=== PATIENT | male | born 1985 | race Caucasian/White ===

== ENCOUNTER 2018-06-10 12:32 | Emergency (ER) | payer MEDICAID ==
[2018-06-10] MEDS ORDERED: IBUPROFEN 600 MG TABLET PO ONE (12:49)
--- NOTE | 2018-06-10 12:53 | Emergency Department Record ---
History of Present Illness - General Chief Complaint: Knee injury Stated Complaint: RT KNEE SWELLING/PAIN Time Seen by Provider: 06/10/18 12:39 Source: Patient Mode of Arrival: Wheelchair Limitations: No limitations - History of Present Illness Initial Comments: The patient is here due to R knee pain. He states he has a hx of chronic R knee injuries and has had multiple surgeries on the R knee. He was walking 3 days ago and the knee gave out and he landed on it and it has been painful and swollen since. The patient states he has been unable to walk on it since. Complaint: Knee injury Onset/Timin -: Days(s) - Related Data Home Medications Medication Instructions Recorded Confirmed Last Taken Albuterol Sulfate [Proair Hfa] 1 - 2 puff IH .EVERY 4-6 HOURS PRN 06/10/1806/10 Unknown Previous Rx's Medication Instructions Recorded Albuterol Sulfate [Proair Hfa] 2 puff IH QID PRN #1 inhaler 06/10/18 Naproxen [Naprosyn] 500 mg PO BID #14 tablet. 06/10/18 Allergies Allergy/AdvReac Type Severity Reaction Status Date / Time No Known Drug Allergies Allergy Verified 06/10/18 12:48 Review of Systems Constitutional: Denies: Chills, Fever Eyes: Denies: Eye discharge ENT: Denies: Congestion Respiratory: Denies: Cough, Dyspnea Cardiovascular: Denies: Chest pain Physical Exam - General General Appearance: Alert, Oriented x3, Cooperative, No acute distress - Head Head exam: Atraumatic, Normocephalic, Normal inspection - Eye Eye exam: Normal appearance, PERRL - ENT ENT exam: Normal exam - Neck Neck exam: Normal inspection, Full ROM. negative: Tenderness - Respiratory Respiratory exam: Normal lung sounds bilaterally. negative: Respiratory distress - Cardiovascular Cardiovascular Exam: Regular rate, Normal rhythm, Normal heart sounds - Extremities Extremities exam: Full ROM (There is full ROM with pain on full flexion.), Normal capillary refill, Tenderness (There is mild diffuse anterior R knee tenderness.), Other (There is no ligamentous laxity appreciated.). negative: Normal inspection (There is no bruising or erythema to the R knee. There may be a very slight joint effusion.), Calf tenderness, Joint swelling, Pedal edema Course Vital Signs 06/10/18 12:43 Temperature 97.9 F Pulse Rate [ 107 H Left] Respiratory 16 Rate Blood Pressure 140/92 [Left Arm] Pulse Ox 97 - Reevaluation(s) Reevaluation #1: I explained to the patient the need to wear his home knee brace and use the crutches for non-lani bearing. He is to take the naprosyn and see a PCP this week for further evaluation and to possibly order an MRI. 06/10/18 13:58 Medical Decision Making - Data Complexity MDM Data: X-Ray Ordered and/or Reviewed - Radiology Data Radiology results: Report reviewed (R knee: previous ACL repair with arthritis. Very small joint effusion. Neg for acute changes.) Disposition Disposition: Discharge Clinical Impression: Knee pain, right Qualifiers: Chronicity: acute Qualified Code(s): M25.561 - Pain in right knee Disposition: Home, Self-Care Condition: (2) Stable Instructions: Knee Pain (ED) Additional Instructions: Please wear your home knee brace and use crutches for walking. Please do not weight bear on the R leg for 3 days. Please see a family doctor this week for recheck and to schedule your R knee MRI. Use ice on the knee when possible. Prescriptions: Albuterol Sulfate [Proair Hfa] 2 puff IH QID PRN #1 inhaler PRN Reason: Cough And Difficulty Breathing Naproxen [Naprosyn] 500 mg PO BID #14 tablet.dr Forms: Patient Portal Access Time of Disposition: 13:49 Quality - Quality Measures Quality Measures: N/A - Blood Pressure Screening View Details: Yes Does Patient Have Any of the Following: No Blood Pressure Classification: Hypertensive Reading Systolic Measurement: 140 Diastolic Measurement: 92 Screening for High Blood Pressure: < First Hypertensive BP, F/U Documented > [ G8950] First Hypertensive Follow-up Interventions: Referral to alternative/primary care provider.
--- NOTE | 2018-06-12 07:54 | RADIOLOGY REPORT ---
EXAM: RIGHT KNEE HISTORY: THE PATIENT'S RIGHT KNEE GAVE OUT FOUR DAYS AGO AND THE PATIENT FELL. ANTERIOR AND LATERAL RIGHT KNEE PAIN. HISTORY OF MULTIPLE PREVIOUS KNEE SURGERIES. TECHNIQUE: Three views of the right knee were obtained. Comparison: None. FINDINGS: The patient is status post ACL repair. There are moderate tricompartmental arthritic changes with moderate sized marginal osteophytes. Ossified loose bodies are also present anteriorly and posteriorly. There is no visible acute fracture or dislocation. A small suprapatellar joint effusion is present. IMPRESSION: 1. MODERATE TRICOMPARTMENTAL ARTHRITIC CHANGES WITH ASSOCIATED OSSIFIED INTRAARTICULAR LOOSE BODIES ANTERIORLY AND POSTERIORLY. 2. SMALL JOINT EFFUSION. 3. NO ACUTE OSSEOUS ABNORMALITY. JOB NUMBER: [id number] [facility] [place]
== END 2018-06-10 14:07 | disposition home or self-care (01) ==
LOC: ER 12:32
DX: G89.11 Acute pain due to trauma (principal); M25.561 Pain in right knee
CPT/HCPCS: 99283

== ENCOUNTER 2018-07-17 08:09 | Emergency (ER) | payer MEDICAID ==
[2018-07-17] MEDS ORDERED: PREDNISONE 20 MG TAB PO ONE (08:29)
--- NOTE | 2018-07-17 08:47 | Emergency Department Record ---
History of Present Illness - General Chief Complaint: Cough Stated Complaint: COUGH Time Seen by Provider: 07/17/18 08:21 Source: Patient Mode of Arrival: Ambulatory Limitations: No limitations - History of Present Illness Initial Comments: The patient is here due to a 5 hour hx of cough and congestion. He does state he has had sputum production and mild SOB. The patient denies any Cp, fever, chills, ST or back pain. He does have a hx of mild asthma but has never needed to stay in the hospital for it. MD Complaint: Cough Onset/Timin -: Hour(s) Severity scale (1-10): 7 Consistency: Constant - Related Data Previous Rx's Medication Instructions Recorded Albuterol Sulfate [Proair Hfa] 2 puff IH QID PRN #1 inhaler 06/10/18 Allergies Allergy/AdvReac Type Severity Reaction Status Date / Time mushroom Allergy Severe Unverified 07/11/18 15:20 Seafood Allergy Severe Hives, Uncoded 06/13/18 17:34 difficulty breathing Travel Screening - Travel/Exposure Within Last 30 Days Have you traveled within the last 30 days?: No Review of Systems Constitutional: Denies: Chills, Fever Eyes: Denies: Eye discharge ENT: Reports: Congestion Respiratory: Reports: Cough. Denies: Dyspnea Past Medical History - SOCIAL HISTORY Smoking Status: Former smoker - RESPIRATORY Hx Respiratory Disorders: Yes Hx Asthma: Yes Hx COPD: Yes - CARDIOVASCULAR Hx Cardio Disorders: No - NEURO Hx Neuro Disorders: No - GI Hx GI Disorders: No - Hx Genitourinary Disorders: No - ENDOCRINE Hx Endocrine Disorders: No - PSYCH Hx Psych Problems: No - HEMATOLOGY/ONCOLOGY Hx Hematology/Oncology Disorders: No Family Medical History Any Significant Family History?: No Physical Exam - General General Appearance: Alert, Oriented x3, Cooperative, No acute distress - Head Head exam: Atraumatic, Normocephalic - Eye Eye exam: Normal appearance, PERRL - ENT Throat exam: Normal inspection. negative: Tonsillar erythema, Tonsillar exudate - Neck Neck exam: Normal inspection, Full ROM. negative: Tenderness - Respiratory Respiratory exam: Normal lung sounds bilaterally. negative: Accessory muscle use, Rales, Respiratory distress, Rhonchi, Stridor, Wheezes - Cardiovascular Cardiovascular Exam: Regular rate, Normal rhythm, Normal heart sounds - GI/Abdominal GI/Abdominal exam: Soft, Normal bowel sounds. negative: Tenderness - Extremities Extremities exam: Normal inspection, Full ROM, Normal capillary refill. negative: Tenderness - Neurological Neurological exam: Alert. negative: Motor sensory deficit - Psychiatric Psychiatric exam: Anxious Course Vital Signs 07/17/18 08:17 Temperature 98.0 F Pulse Rate 119 H Respiratory 20 Rate Blood Pressure 154/100 Pulse Ox 97 - Reevaluation(s) Reevaluation #1: The patient now states he did call his Infant Nanny this AM and just received a call back. His doctor is in [place] and wants to see him right away. Due to that fact the patient would like to leave here and go to his doctor's office immediately. I did explain to the patient that we have not evaluated him properly and by leaving he would have to leave AMA. I explained to him the risks of leaving are that he could leave and his ARLIN could worsen, he could go into respiratory failure, have a stroke, become disabled and even . The patient understands and accepts the risks and understands we cannot be held liable for NOT treating him. He presently has proper decision making capacity. I explained to him that he can return to the ER at any time if he wishes for evaluation and treatment. 07/17/18 08:54 07/17/18 08:57 Disposition Disposition: Discharge Clinical Impression: Dyspnea Qualifiers: Dyspnea type: unspecified Qualified Code(s): R06.00 - Dyspnea, unspecified Disposition: Against Medical Advice Condition: (2) Stable Instructions: Cold Symptoms (ED) Additional Instructions: Please continue your regular medicines and please return to the ER for any worsening symptoms or if you change your mind about being evaluated here at [facility]. Forms: Patient Portal Access Time of Disposition: 08:56 Quality - Quality Measures Quality Measures: N/A - Blood Pressure Screening View Details: Yes Does Patient Have Any of the Following: No Blood Pressure Classification: Hypertensive Reading Systolic Measurement: 154 Diastolic Measurement: 100 Screening for High Blood Pressure: < First Hypertensive BP, F/U Documented > [ G8950] First Hypertensive Follow-up Interventions: Referral to alternative/primary care provider.
[2018-07-17] MEDS ORDERED: IPRATROPIUM/ALBUTEROL (0.5MG/3MG) NEB INH ONE (08:57)
--- NOTE | 2018-07-17 09:02 | Emergency Department Record ---
History of Present Illness - General Chief Complaint: Cough Stated Complaint: COUGH Time Seen by Provider: 07/17/18 08:21 Source: Patient Mode of Arrival: Ambulatory Limitations: No limitations - History of Present Illness Onset/Timin -: Hour(s) Severity scale (1-10): 7 Consistency: Constant - Related Data Previous Rx's Medication Instructions Recorded Albuterol Sulfate [Proair Hfa] 2 puff IH QID PRN #1 inhaler 06/10/18 Allergies Allergy/AdvReac Type Severity Reaction Status Date / Time mushroom Allergy Severe Unverified 07/11/18 15:20 Seafood Allergy Severe Hives, Uncoded 06/13/18 17:34 difficulty breathing Travel Screening - Travel/Exposure Within Last 30 Days Have you traveled within the last 30 days?: No Review of Systems Constitutional: Denies: Chills, Fever Eyes: Denies: Eye discharge ENT: Reports: Congestion Respiratory: Reports: Cough. Denies: Dyspnea Past Medical History - SOCIAL HISTORY Smoking Status: Former smoker - RESPIRATORY Hx Respiratory Disorders: Yes Hx Asthma: Yes Hx COPD: Yes - CARDIOVASCULAR Hx Cardio Disorders: No - NEURO Hx Neuro Disorders: No - GI Hx GI Disorders: No - Hx Genitourinary Disorders: No - ENDOCRINE Hx Endocrine Disorders: No - PSYCH Hx Psych Problems: No - HEMATOLOGY/ONCOLOGY Hx Hematology/Oncology Disorders: No Family Medical History Any Significant Family History?: No Physical Exam - General General Appearance: Alert, Oriented x3, Cooperative (The patient is speaking in full sentences with no problems or issues or SOB.) Limitations: No limitations Course Vital Signs 07/17/18 08:17 Temperature 98.0 F Pulse Rate 119 H Respiratory 20 Rate Blood Pressure 154/100 Pulse Ox 97 Disposition Clinical Impression: Dyspnea Qualifiers: Dyspnea type: unspecified Qualified Code(s): R06.00 - Dyspnea, unspecified Disposition: Against Medical Advice Condition: (2) Stable Instructions: Cold Symptoms (ED) Additional Instructions: Please continue your regular medicines and please return to the ER for any worsening symptoms or if you change your mind about being evaluated here at [facility]. Forms: Patient Portal Access Quality - Quality Measures Quality Measures: N/A - Blood Pressure Screening View Details: Yes Does Patient Have Any of the Following: No Blood Pressure Classification: Hypertensive Reading Systolic Measurement: 154 Diastolic Measurement: 100 Screening for High Blood Pressure: < First Hypertensive BP, F/U Documented > [ G8950] First Hypertensive Follow-up Interventions: Referral to alternative/primary care provider.
== END 2018-07-17 08:59 | disposition left against medical advice (07) ==
LOC: ER 08:09
DX: R06.00 Dyspnea, unspecified (principal); R05 Cough; J44.9 Chronic obstructive pulmonary disease, unspecified; F17.210 Nicotine dependence, cigarettes, uncomplicated
CPT/HCPCS: 99283 ×2; J7512

== ENCOUNTER 2018-08-27 07:12 | Emergency (ER) | payer MEDICAID ==
[2018-08-27] MEDS ORDERED: PROMETHAZINE HCL 25 MG/ML VIAL IV ONE (07:28)
[2018-08-27] MEDS ORDERED: 0.9 % SODIUM CHLORIDE 1,000 ML BAG IV ONE (07:28)
[2018-08-27] MEDS ORDERED: ALBUTEROL SULFATE (0.083%) 2.5 MG/3 ML NEB INH ONE ×2 (07:29→08:44)
[2018-08-27] MEDS ORDERED: METHYLPREDNISOLONE PF 125MG/VIAL IM ONE (07:30)
--- NOTE | 2018-08-27 07:36 | Emergency Department Record ---
History of Present Illness - General Chief Complaint: Dizziness Stated Complaint: DIZZINESS/ARLIN/CP Time Seen by Provider: 08/27/18 07:28 Source: Patient Mode of Arrival: Ambulatory Limitations: No limitations - History of Present Illness Initial Comments: Pt with complaint of 4 day hx of nausea and vomiting without diarrhea. Mid epigastric discomfort without fever, hematemesis. Pt denies new meds, travel, unusual or new foods, or sick family contacts. No hx ETOH use, + daily smoker of 4-5 cigarettes a day. Denies drug use. Vomiting started 4 days ago and after a day of vomiting her became dizzy. Dizziness is constant and not associated with change in position. No MARROQUIN or visual changes. Pt has hx of asthma and has had recent flare with this event. Not using any meds for asthma, no inhaler. Also relates a "cold" with sore throat and hoarse voice. MD Complaint: Dizziness Onset/Timin -: Days(s) Description: Nausea History of Same: No History of Trauma: No Improves With: Nothing Worsens With: Nothing Associated Symptoms: Chest pain, Cough, Fever/chills, Loss of appetite, Shortness of breath, Weakness - [place] Coma Scale Eye Response: (4) Open spontaneously Motor Response: (6) Obeys commands Verbal Response: (5) Oriented [place] Total: 15 - Related Data Home Medications Medication Instructions Recorded Confirmed Last Taken Budesonide/Formoterol Fumarate 10.2 gm IH DAILY 08/27/18 08/27/18 Unknown [Symbicort 160-4.5 Mcg Inhaler] Previous Rx's Medication Instructions Recorded Azithromycin [Zithromax] 250 mg PO DAILY 5 Days #6 tablet 08/27/18 Ondansetron [Zofran Odt] 4 mg PO Q8H PRN 7 Days #20 08/27/18 tab.rapdis Prednisone [Prednisone 20Mg] 40 mg PO DAILY 5 Days #10 tab 08/27/18 Allergies Allergy/AdvReac Type Severity Reaction Status Date / Time mushroom Allergy Intermediate ANAPHYLAXIS Verified 08/27/18 07:35 Seafood Allergy Severe Hives, Uncoded 06/13/18 17:34 difficulty breathing Travel Screening - Travel/Exposure Within Last 30 Days Have you traveled within the last 30 days?: No Review of Systems Constitutional: Denies: Chills, Fever, Weakness Eyes: Denies: Eye discharge, Photophobia ENT: Denies: Congestion, Ear pain Respiratory: Reports: As per HPI, Cough, Dyspnea, Wheezes Cardiovascular: Denies: Arrhythmia, Chest pain, Palpitations, Syncope Endocrine: Denies: Fatigue, Polyuria Gastrointestinal: Reports: As per HPI, Nausea, Vomiting. Denies: Abdominal pain , Constipation, Diarrhea Musculoskeletal: Denies: Arthralgia, Joint swelling Skin: Denies: Bruising, Rash Neurological: Reports: Other (dizziness as per HPI). Denies: Abnormal gait, Headache, Numbness, Weakness Psychiatric: Denies: Suicidal thoughts Hematological/Lymphatic: Denies: Anemia, Easy bleeding Past Medical History - SOCIAL HISTORY Smoking Status: Current every day smoker Alcohol Use: None Drug Use: None - RESPIRATORY Hx Respiratory Disorders: Yes Hx Asthma: Yes Hx COPD: Yes - CARDIOVASCULAR Hx Cardio Disorders: Yes Hx Hypertension: Yes - NEURO Hx Neuro Disorders: No - GI Hx GI Disorders: No - Hx Genitourinary Disorders: No - ENDOCRINE Hx Endocrine Disorders: No - PSYCH Hx Psych Problems: No - HEMATOLOGY/ONCOLOGY Hx Hematology/Oncology Disorders: No Family Medical History Any Significant Family History?: No Physical Exam - General General Appearance: Alert, Oriented x3, Cooperative, Mild distress - Head Head exam: Atraumatic, Normocephalic - Eye Eye exam: Normal appearance, PERRL, EOMI - ENT ENT exam: Mucous membranes moist, Normal external ear exam, Normal orophraynx, TM's normal bilaterally Nasal Exam: Normal inspection. negative: Active bleeding, Dried blood, Sinus tenderness Mouth exam: Normal external inspection. negative: Muffled voice, Tongue elevation Throat exam: Normal inspection. negative: Tonsillar erythema, Tonsillar exudate - Neck Neck exam: Normal inspection, Full ROM. negative: Lymphadenopathy, Tenderness - Respiratory Respiratory exam: Wheezes. negative: Accessory muscle use, Decreased breath sounds, Respiratory distress - Cardiovascular Cardiovascular Exam: Regular rate, Normal rhythm, Normal heart sounds. negative: Tachycardia Peripheral Pulses: 2+: Radial (R), Radial (L) - GI/Abdominal GI/Abdominal exam: Soft, Normal bowel sounds. negative: Distended, Guarding, Tenderness - Extremities Extremities exam: Normal inspection, Full ROM, Normal capillary refill. negative: Calf tenderness - Back Back exam: Reports: Normal inspection. Denies: Paraspinal tenderness - Neurological Neurological exam: Alert, Normal gait, Oriented X3 - Psychiatric Psychiatric exam: Normal affect, Normal mood - Skin Skin exam: Normal color. negative: Rash Course Vital Signs 08/27/18 07:17 Temperature 98.7 F Pulse Rate 113 H Respiratory 20 Rate Blood Pressure 129/93 Pulse Ox 95 - Reevaluation(s) Reevaluation #1: 08/27/18 08:02 Pt improved with Phenergan and albuterol. Nausea better and dizziness diminished. Labs normal. Will give second 1000ml saline bolus. Reevaluation #2: 08/27/18 08:55 recheck: Pt resting. Nausea resolved and dizziness improved. Still feels congested after Neb tx. Lung coarse with decreased wheeze. Will get CXR and repeat albuterol neb. Reevaluation #3: 08/27/18 09:26 CXR with RLL pneumonia. IV Rocephin given in department. Plan is for home on Zithromax with prednisone and using inhaler Q 4 hours. Pt will NOT smoke and will rest. If he becomes worse he is to return to the ED at any time. He agrees with this plan. Zofran for nausea at home. Medical Decision Making - Lab Data Result diagrams: 08/27/18 07:30 08/27/18 07:30 Disposition Disposition: Discharge Clinical Impression: Pneumonia, Asthma exacerbation, Vomiting, Dizziness Disposition: Home, Self-Care Condition: (2) Stable Instructions: Dizziness (ED), Pneumonia (ED) Additional Instructions: Take Zithromax as instructed until gone. Take Prednisone and Zofran as prescribed. Use your inhaler every 4 hours. DO NOT SMOKE. Clear liquid diet today advancing as tolerated. Work note provided with diagnosis at patient's request. See your doctor in 2 days or return here at any time if worse or concerns. Prescriptions: Prednisone [Prednisone 20Mg] 40 mg PO DAILY 5 Days #10 tab Azithromycin [Zithromax] 250 mg PO DAILY 5 Days #6 tablet Ondansetron [Zofran Odt] 4 mg PO Q8H PRN 7 Days #20 tab.rapdis PRN Reason: Nausea/Vomiting Forms: Patient Portal Access Time of Disposition: 09:43 Quality - Quality Measures Quality Measures: N/A - Blood Pressure Screening Does Patient Have Any of the Following: No Blood Pressure Classification: Hypertensive Reading Systolic Measurement: 129 Diastolic Measurement: 93 Screening for High Blood Pressure: Patient Exclusion, Hx of HTN [G9744]
[2018-08-27 07:38] LABS: ABSOLUTE NEUTROPHIL COUNT 4.61; BASO % 0.3 % (0-6); EOS % 5.8 % (0-6); GRAN % 60.7 % (47-80); HEMATOCRIT 47.2 % (42.0-52.0); HEMOGLOBIN 15.2 gm/dl (14.0-18.0); LYMPH % 21.7 % (16-45); MEAN CELL VOLUME 89.4 fl (81-97); MEAN CORPUSCULAR HEMOGLOBIN 28.8 pg (27-33); MEAN CORPUSCULAR HGB CONC 32.2 g/dl (32-36); MEAN PLATELET VOLUME 10.4 fl (7.4-10.4); MONO % 11.5 % (0-9); PLATELET COUNT 424 K/uL (130-400); RED BLOOD COUNT 5.28 M/uL (4.40-5.70); RED CELL DISTRIBUTION WIDTH 13.3 % (11.5-14.5); WHITE BLOOD COUNT W/O DIFF 7.6 K/uL (4.2-12.2)
[2018-08-27 07:50] LABS: BLOOD UREA NITROGEN 18 mg/dL (6-20); CREATININE 0.9 mg/dL (0.7-1.2); EST GLOMERULAR FILTRATION RATE > 60 mL/min
[2018-08-27 07:51] LABS: LIPASE 14 U/L (13-60)
[2018-08-27 07:53] LABS: GLUCOSE,RANDOM 118 mg/dL (74-109)
[2018-08-27 07:56] LABS: ALKALINE PHOSPHATASE 106 U/L (40-129); ALT/SGPT 19 U/L (<41); AST/SGOT 15 U/L (10.0-50.0); BILIRUBIN,DIRECT < 0.2 mg/dL (0-0.3)
[2018-08-27] MEDS ORDERED: 0.9 % SODIUM CHLORIDE 1000ML 1,000 ML IV ONE (08:02)
[2018-08-27] MEDS ORDERED: CEFTRIAXONE 1GM/50ML BAG 1 GM/50 ML BAG IVPB ONE (09:20)
--- NOTE | 2018-08-28 12:38 | RADIOLOGY REPORT ---
EXAM: CHEST, TWO VIEWS HISTORY: DIFFICULTY BREATHING. DIZZINESS, NAUSEA AND VOMITING. TECHNIQUE: Upright PA and lateral views of the chest were obtained. Comparison: None. FINDINGS: The heart is not enlarged and the pulmonary vasculature is not dilated. Mixed reticulonodular and ground glass opacities are scattered in the mid and lower aspects of the right lung suspicious for bronchopneumonia. The left lung appears grossly clear. No costophrenic angle blunting or pneumothorax. IMPRESSION: MIXED RETICULONODULAR AND GROUND GLASS OPACITIES SCATTERED IN THE MID AND LOWER RIGHT LUNG SUSPICIOUS FOR BRONCHOPNEUMONIA. SHORT TERM FOLLOW-UP RADIOGRAPHIC EXAMINATIONS UNTIL COMPLETE CLEARING ARE RECOMMENDED. JOB NUMBER: [id number] MTDD
== END 2018-08-27 10:08 | disposition home or self-care (01) ==
LOC: ER 07:12
DX: J18.9 Pneumonia, unspecified organism (principal); J45.901 Unspecified asthma with (acute) exacerbation; R42 Dizziness and giddiness; R11.2 Nausea with vomiting, unspecified; I10 Essential (primary) hypertension; J44.9 Chronic obstructive pulmonary disease, unspecified; F17.210 Nicotine dependence, cigarettes, uncomplicated
CPT/HCPCS: 99284 ×2; 96365; 96375; 96361; 84075; 84450; 84460; 82247; 82248; 83690; 85025; 80048; 71046; J0696; J2550; J2930; J7030; J7613